=== PATIENT | female | born 1945 | race Caucasian/White ===

== ENCOUNTER → 2024-08-08 15:11 | Outpatient (REF) | payer OTHER, SELFPAY | LOC: MRI 3T 15:11 | PROVIDERS: ATTENDING PHYSICIAN Physical Medicine & Rehabilitation; FAMILY PHYSICIAN Emergency Medicine | DX: M54.12 Radiculopathy, cervical region (principal) | CPT/HCPCS: 72141 ==

== ENCOUNTER → 2024-12-14 09:57 | Outpatient (REF) | payer OTHER, SELFPAY | LOC: RAD 09:57 | PROVIDERS: ATTENDING PHYSICIAN Orthopaedic Surgery; FAMILY PHYSICIAN Emergency Medicine | DX: Z96.651 Presence of right artificial knee joint (principal) | CPT/HCPCS: 93971 ==

== ENCOUNTER → 2025-02-09 10:49 | Outpatient (REF) | payer OTHER, SELFPAY | LOC: RAD 10:49 | PROVIDERS: ATTENDING PHYSICIAN Nurse Practitioner Family | DX: R55 Syncope and collapse (principal); M54.2 Cervicalgia; Z91.81 History of falling; M53.3 Sacrococcygeal disorders, not elsewhere classified | CPT/HCPCS: 70450; 72040; 72220; 93880 ==

== ENCOUNTER → 2025-06-14 15:16 | Outpatient (REF) | payer OTHER, SELFPAY | LOC: RCS 15:16 | PROVIDERS: ATTENDING PHYSICIAN Nuclear Medicine Nuclear Cardiology; FAMILY PHYSICIAN Family Medicine | DX: I10 Essential (primary) hypertension (principal); E78.2 Mixed hyperlipidemia; R55 Syncope and collapse | CPT/HCPCS: 93306 ==